=== PATIENT | female | born 2005 | race African-American/Black ===

== ENCOUNTER 2023-10-08 08:41 | Outpatient (REF) | payer BC, SELFPAY ==
--- NOTE | ~2023-10-08 | US_ITS ---
EXAMINATION: US PELVIS CLINICAL INFORMATION: For assessment of intrauterine device position; the last menstrual period is uncertain. COMPARISON: None available. TECHNIQUE: Ultrasound of the pelvis is performed using both transabdominal and transvaginal transducers along with Doppler. Transvaginal imaging is performed due to inadequate visualization transabdominally. FINDINGS: Uterus: The uterus is anteverted and retroflexed. The uterus measures 8.0 x 3.3 x 3.9 cm. The double wall endometrial thickness is 3 mm. An intrauterine device is seen, positioned within the lower uterine segment, with arms situated at the level of the mid body myometrium. The uterus is smooth in contour and has normal myometrial echogenicity. No visible fibroid. Adnexa: Both ovaries are visualized. There is normal color flow to the adnexa. There is no ovarian torsion. There is no pelvic ascites or fluid collection. Right ovary measures 4.1 x 4.8 x 3.3 cm, volume 34.0 mL. The right ovary contains a 3.3 x 3.3 x 3.0 cm mildly complex cyst, with fine septations and no mural nodularity or significant associated color Doppler flow. Left ovary measures 3.0 x 1.6 x 3.1 cm, volume 7.5 mL. US/US pelvic complete IMPRESSION: 1. An intrauterine device is seen, situated within the lower uterine segment. The arms appeared deployed in the mid body at the level of the myometrium. 2. A 3.3 cm mildly complex right ovarian cyst is seen, with a few fine septations. This is indeterminate, and gynecology evaluation and management is recommended. At a minimum, recommend follow-up pelvic ultrasound examination in 6-12 weeks.
== END 2023-10-08 08:42 | disposition home or self-care (01) ==
LOC: HO.UMASIMG 08:41
PROVIDERS: Visit Provider Family Medicine
DX: Z30.431 Encounter for routine checking of intrauterine contraceptive device (principal)
CPT/HCPCS: 76856

== ENCOUNTER 2024-03-24 08:33 | Outpatient (REF) | payer BC, SELFPAY ==
--- NOTE | ~2024-03-24 | US_ITS ---
EXAMINATION: US PELVIS CLINICAL INFORMATION: Follow up right ovarian cysts COMPARISON: October 08, 2023 TECHNIQUE: Ultrasound of the pelvis is performed using both transabdominal and transvaginal transducers along with Doppler. Transvaginal imaging is performed due to inadequate visualization transabdominally. LMP] 1 day before evaluate IUD placement FINDINGS: Uterus: The uterus is anteverted and measures 4.0 x 2.9 x 4.2 cm cm. Cervix measured 2.6 cm The double wall endometrial thickness is 0.2 mm, with trace of fluid and IUD in the lower uterine segment again approximately 2.9 cm from the fundus. The uterus is smooth in contour and has normal myometrial echogenicity. No visible fibroid. Adnexa: Both ovaries are visualized. There is normal color flow to the adnexa. There is no ovarian torsion. There is no pelvic ascites or fluid collection. Right ovary measures 3.0 x 1.9 x 2.9 cm. With a volume of 8.7 mL. Seen on the previous examination right ovarian cyst has been resolved. Left ovary measures 2.9 x 1.8 x 1.6 cm. With a volume of left ovary measured 4.2 mL. US/US pelvic and transvaginal IMPRESSION: Unsatisfactory positioning of IUD. Otherwise unremarkable exam Electronically signed by: Chuy Magaña MD 03/24/2024 03:28 PM EDT
== END 2024-03-24 08:34 | disposition home or self-care (01) ==
LOC: HO.UMASIMG 08:33
PROVIDERS: Visit Provider Nurse Practitioner Women's Health
DX: N83.291 Other ovarian cyst, right side (principal)
CPT/HCPCS: 76830; 76856